=== PATIENT | male | born 1965 | race Caucasian/White ===

== ENCOUNTER 2016-10-16 10:57 | Emergency (ER) | payer OTHER ==
[2016-10-16 14:10] LABS: HEMOGLOBIN 15.9 gm/dl (14.0-17.5); RED BLOOD COUNT 4.92 M/UL (4.20-5.50)
[2016-10-16 14:27] LABS: BUN/CREATININE RATIO 22 (0-10)
== END 2016-10-16 17:51 | disposition home or self-care (01) ==
LOC: ER1 10:57
PROVIDERS: Physician Assistant
DX: G89.18 Other acute postprocedural pain (principal); R20.0 Anesthesia of skin; R20.2 Paresthesia of skin; Z88.8 Allergy status to other drugs, medicaments and biological substances
CPT/HCPCS: 36415; 72141; 80053; 83605; 85025; 86140; 87040; 96374; 96375; 96376; 99284; J2405; J2550

== ENCOUNTER → 2017-02-08 | Outpatient (CLI) | payer OTHER | LOC: EMI 02-03 07:30 | DX: G95.20 Unspecified cord compression (principal); M79.603 Pain in arm, unspecified; M50.222 Other cervical disc displacement at C5-C6 level; M50.223 Other cervical disc displacement at C6-C7 level; M99.71 Connective tissue and disc stenosis of intervertebral foramina of cervical region; Z98.1 Arthrodesis status | CPT/HCPCS: 72141 ==